=== PATIENT | male | born 1985 | race Two or more races ===

== ENCOUNTER 2017-11-30 10:31 | Emergency (ER) | payer OTHER ==
--- NOTE | 2017-11-30 12:09 | CT ---
Head CT Technique: Multiple axial sections through the brain were obtained. Intravenous contrast was not utilized. Comparison: No previous intracranial imaging. Findings: Ventricles along with basal cisterns and sulci over the convexities are within normal limits for the patient's age. No abnormal parenchymal densities are seen. No evidence of intracranial hemorrhage. No midline shift or mass effect. Bone window settings were reviewed which shows no acute calvarial abnormality. Visualized sinuses are clear. Impression: 1. Nothing acute is appreciated on noncontrast head CT exam. Diagnostic code #1
--- NOTE | 2017-11-30 13:46 | EDM.PDOCBH ---
ED HPI GENERAL MEDICAL PROBLEM - General Chief Complaint: Neurological Problem Stated Complaint: [facility]/SENT FROM [facility] Time Seen by Provider: 11/30/17 10:48 Source of Information: Reports: Patient History Limitations: Reports: No Limitations - History of Present Illness INITIAL COMMENTS - FREE TEXT/NARRATIVE: The patient presents with lightheadedness. This happened a couple times this morning. He also had some head pressure. He had some blurry vision with it and it cleared up. He has no fever, chills, cough, chest pain, shortness of breath, abdominal pain, nausea or vomiting He has no numbness or weakness. He had this happen in March and he had some palpitations with it. He did not feel like he had palpitations this time. He has no other medical problems. He is not under any more stress then normal. 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 Onset: Sudden Duration: Minutes: Severity: Moderate Improves with: Reports: None Worsens with: Reports: None Associated Symptoms: Denies: Chest Pain, Cough, Fever/Chills, Headaches, Nausea/ Vomiting, Shortness of Breath - Related Data Allergies Allergy/AdvReac Type Severity Reaction Status Date / Time No Known Allergies Allergy Verified 11/30/17 10:54 Home Meds: Home Meds . [No Known Home Meds] 11/30/17 [History] Past Medical History - Past Health History Medical/Surgical History: Denies Medical/Surgical History Social & Family History - Tobacco Use Smoking Status *Q: Never Smoker - Caffeine Use Caffeine Use: Reports: Coffee - Recreational Drug Use Recreational Drug Use: No ED ROS GENERAL - Review of Systems Review Of Systems: See Below Constitutional: Reports: No Symptoms HEENT: Reports: No Symptoms Respiratory: Reports: No Symptoms Cardiovascular: Reports: Lightheadedness. Denies: Chest Pain Endocrine: Reports: No Symptoms GI/Abdominal: Reports: No Symptoms : Reports: No Symptoms Musculoskeletal: Reports: No Symptoms Neurological: Reports: Headache (pressure) ED EXAM, BEHAVIORAL HEALTH - Physical Exam Exam: See Below Exam Limited By: No Limitations General Appearance: Alert, No Apparent Distress Ears: Normal External Exam Nose: Normal Inspection Head: Atraumatic, Normocephalic Neck: Normal Inspection Respiratory/Chest: No Respiratory Distress, Lungs Clear, Normal Breath Sounds Cardiovascular: Regular Rate, Rhythm, No Edema, No Murmur GI/Abdominal: Soft, Non-Tender, No Organomegaly, No Mass Back Exam: Normal Inspection Extremities: Normal Inspection Neurological: Alert, No Motor/Sensory Deficits, Oriented x 3 EKG INTERPRETATION EKG Date: 11/30/17 Time: 11:09 Rhythm: NSR Rate (Beats/Min): 61 [place]: Normal P-Wave: Present QRS: Normal ST-T: Elevated (normal early repol) QT: Normal COURSE, BEHAVIORAL HEALTH COMP - Course Vital Signs: Last Vital Signs Temp 97.3 F 11/30/17 10:51 Pulse 59 L 11/30/17 10:51 Resp 14 11/30/17 10:51 BP 109/70 11/30/17 10:51 Pulse Ox 97 11/30/17 10:51 Orders, Labs, Meds: Active Orders 24 hr Category Date Time Status Cardiac Monitoring [RC] . DIRECTED Care 11/30/17 11:00 Active EKG Documentation Completion [RC] STAT Care 11/30/17 11:01 Active Holter Monitor 48 Hours [RC] .PRN Care 11/30/17 13:37 Active Laboratory Tests 11/30/17 11/30/17 Range/Units 11:16 11:16 WBC 5.64 (4.23-9.07) K/mm3 RBC 5.04 (4.63-6.08) M/mm3 Hgb 14.7 (13.7-17.5) gm/L Hct 42.3 (40.1-51.0) % MCV 83.9 (79.0-92.2) fl MCH 29.2 (25.7-32.2) pg MCHC 34.8 (32.2-35.5) g/dl RDW Std Deviation 37.8 (35.1-43.9) fL Plt Count 191 (163-337) K/mm3 MPV 10.6 (9.4-12.3) fl Neut % (Auto) 47.2 (34.0-67.9) % Lymph % (Auto) 31.6 (21.8-53.1) % [place] % (Auto) 19.1 H (5.3-12.2) % Eos % (Auto) 1.2 (0.8-7.0) Baso % (Auto) 0.5 (0.1-1.2) % Neut # (Auto) 2.66 (1.78-5.38) K/mm3 Lymph # (Auto) 1.78 (1.32-3.57) K/mm3 [place] # (Auto) 1.08 H (0.30-0.82) K/mm3 Eos # (Auto) 0.07 (0.04-0.54) K/mm3 Baso # (Auto) 0.03 (0.01-0.08) K/mm3 Manual Slide Review Normal smear Sodium 138 (136-145) mEq/L Potassium 4.3 (3.5-5.1) mEq/L Chloride 103 (98-107) mEq/L Carbon Dioxide 28 (21-32) mEq/L Anion Gap 11.3 (5-15) BUN 17 (7-18) mg/dL Creatinine 1.1 (0.7-1.3) mg/dL Est Cr Clr Drug Dosing 100.47 mL/min Estimated GFR (MDRD) > 60 (>60) mL/min BUN/Creatinine Ratio 15.5 (14-18) Glucose 101 (74-106) mg/dL Calcium 9.1 (8.5-10.1) mg/dL Total Bilirubin 0.3 (0.2-1.0) mg/dL AST 17 (15-37) U/L ALT 35 (16-63) U/L Alkaline Phosphatase 45 L (46-116) U/L Troponin I < 0.017 (0.00-0.056) ng/mL Total Protein 7.4 (6.4-8.2) g/dl Albumin 4.0 (3.4-5.0) g/dl Globulin 3.4 gm/dL Albumin/Globulin Ratio 1.2 (1-2) Re-Assessment/Re-Exam: I ordered an EKG, labs and a CT of his head. The CT shows nothing acute. His EKG shows normal early repol. His CBC and CMP look good. His troponin is negative. I going to have him wear a holter monitor for 48 hours and have him follow up with Mirna Villalba. Departure - Departure Time of Disposition: 13:50 Disposition: Home, Self-Care 01 Condition: Good Clinical Impression: Lightheaded - Discharge Information *PRESCRIPTION DRUG MONITORING PROGRAM REVIEWED*: No *COPY OF PRESCRIPTION DRUG MONITORING REPORT IN PATIENT [place]: No Referrals: Emily Villalba PA-C [Primary Care Provider] - 1 Week Additional Instructions: Wear the holter monitor for 2 days. Try to avid caffeine or other stimulants like nicotine. Drink plenty of water. Follow up with Mirna Villalba in 1 week. Please return if you are worse. - My Orders Last 24 Hours: My Active Orders 11/30/17 11:00 Cardiac Monitoring [RC] . DIRECTED 11/30/17 11:01 EKG Documentation Completion [RC] STAT 11/30/17 13:37 Holter Monitor 48 Hours [RC] .PRN - Assessment/Plan Last 24 Hours: My Active Orders 11/30/17 11:00 Cardiac Monitoring [RC] . DIRECTED 11/30/17 11:01 EKG Documentation Completion [RC] STAT 11/30/17 13:37 Holter Monitor 48 Hours [RC] .PRN
== END 2017-11-30 14:12 | disposition home or self-care (01) ==
LOC: JD.ED 10:31
DX: R42 Dizziness and giddiness (principal)
CPT/HCPCS: 36415; 70450; 70450-26; 80053; 84484; 85025; 93005; 93225; 93226; 99285-25